=== PATIENT | female | born 1980 | race Caucasian/White ===

== ENCOUNTER 2016-12-26 13:27 | Emergency (ER) | payer OTHER, SELFPAY ==
[2016-12-26 13:33] VITALS: BP 123/79; PULSE 77; RESP 18; TEMP 98.3; O2SAT 100; BMI 30.2
--- NOTE | 2016-12-26 13:52 | ED PDOC ---
HPI: Female Pain Time Seen by Provider: 12/26/16 13:40 Chief Complaint (Nursing): Female Genitourinary Chief Complaint (Provider): dysuria, bodyaches History Per: Patient Additional Complaint(s): pt c/o dysuria, lower bad pain x 2-3 days w/ associated bodyaches, nausea. no fever, cp, sob, v/d/c, hematuria. LMP 12/07. also c/o L sided facial pressure behind eye and headache. Past Medical History Reviewed: Historical Data, Nursing Documentation, Vital Signs Vital Signs: Last Vital Signs Temp 98.3 F 12/26/16 13:32 Pulse 77 12/26/16 13:32 Resp 18 12/26/16 13:32 BP 123/79 12/26/16 13:32 Pulse Ox 100 12/26/16 13:32 - Medical History PMH: Depression Denies: Chronic Kidney Disease - Family History Family History: States: No Known Family Hx - Social History Current smoker - smoking cessation education provided: No Alcohol: None Drugs: Denies - Immunization History Hx Tetanus Toxoid Vaccination: No Hx Influenza Vaccination: No Hx Pneumococcal Vaccination: No - Home Medications Home Medications: Ambulatory Orders Medication Instructions Recorded Ibuprofen [Motrin] 600 mg PO Q6 PRN #14 tab 10/22/14 Oseltamivir Phosphate [Tamiflu] 75 mg PO BID #10 cap 10/22/14 Promethazine/Codeine 5 ml PO Q6 PRN #50 ml 10/22/14 [Codeine/Promethazine 10 MG/5 Ml-6.25 MG/5 Ml] Acetaminophen/Butalbital/Caf 1 tab PO Q6 PRN #20 tab 11/04/14 [Fioricet] Docusate Sodium [Colace] 100 mg PO BID #30 sgl 11/04/14 Meclizine [Antivert] 12.5 mg PO TID PRN #15 tab 11/04/14 Polymyxin B Sulfate/Trimetho 2 drop OP Q4 #1 shey 06/12/15 [Polymycin B/Trimethoprim Sulfate 12337 U/ml-1] Famotidine [Pepcid] 20 mg PO BID #20 tab 01/29/16 Fluticasone Nasal [Flonase] 1 spr NS DAILY #1 spr 12/26/16 Ibuprofen [Motrin] 600 mg PO Q8 #20 tab 12/26/16 - Allergies Allergies/Adverse Reactions: Allergies Allergy/AdvReac Type Severity Reaction Status Date / Time No Known Allergies Allergy Verified 12/26/16 13:45 Review of Systems ROS Statement: Except As Marked, All Systems Reviewed And Found Negative ENT: Positive for: Nose Congestion Gastrointestinal: Positive for: Nausea Genitourinary Female: Positive for: Dysuria Neurological: Positive for: Headache Physical Exam - Reviewed Nursing Documentation Reviewed: Yes Vital Signs Reviewed: Yes - Physical Exam Appears: Positive for: Well, Non-toxic, No Acute Distress Head Exam: Positive for: ATRAUMATIC, NORMAL INSPECTION, NORMOCEPHALIC Skin: Positive for: Normal Color, Warm, DRY Eye Exam: Positive for: EOMI, Normal appearance, PERRL ENT: Positive for: Normal ENT Inspection, Other (L maxillary and frontal sinus tederness) Neck: Positive for: Normal, Painless ROM Cardiovascular/Chest: Positive for: Regular Rate, Rhythm Respiratory: Positive for: CNT, Normal Breath Sounds Gastrointestinal/Abdominal: Positive for: Normal Exam, Bowel Sounds, Soft, Tenderness (mild suprapubic tenderness). Negative for: Mass, Distended, Guarding, Rebound Neurologic/Psych: Positive for: Alert, [employer] certified network professional II-XII, Oriented, Gait (steady). Negative for: Motor/Sensory Deficits - ECG O2 Sat by Pulse Oximetry: 100 Medical Decision Making Medical Decision Making: urine clean. s/sx sinus congestion. will give motrin/flonase, refer to pmd. Disposition - Clinical Impression Clinical Impression: Sinus headache - Patient ED Disposition Is Patient to be Admitted: No - Disposition Referrals: [facility] [Outside] Disposition: Routine/Home Disposition Time: 14:28 Condition: GOOD Prescriptions: Fluticasone Nasal [Flonase] 1 spr NS DAILY #1 spr Ibuprofen [Motrin] 600 mg PO Q8 #20 tab Instructions: Acute Headache (ED) Forms: [facility] ED School/Work Excuse Print Language: IRISH
== END 2016-12-26 15:03 | disposition home or self-care (01) ==
LOC: H.ER 13:27
DX: R30.0 Dysuria (principal); R51 Headache

== ENCOUNTER 2017-04-10 11:57 | Emergency (ER) | payer SELFPAY ==
[2017-04-10 11:57] VITALS: BMI 30.2
[2017-04-10 12:01] VITALS: BP 125/57; PULSE 75; RESP 16; TEMP 98; O2SAT 99
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
--- NOTE | 2017-04-10 15:24 | RAD ---
PROCEDURE: Cervical Spine Radiographs. HISTORY: Pain. COMPARISON: None. FINDINGS: BONES: Alignment maintained. No fracture. Dens Intact. DISC SPACES: Normal. SOFT TISSUES: Normal. No prevertebral soft tissue swelling. OTHER FINDINGS: None. IMPRESSION: Normal cervical spine radiographs
== END 2017-04-10 14:40 | disposition home or self-care (01) ==
LOC: H.ER 11:57
DX: S43.402A Unspecified sprain of left shoulder joint, initial encounter (principal); Y04.8XXA Assault by other bodily force, initial encounter
CPT/HCPCS: 71020; 72050; 73030; 81025; 96372; 99283; J1885

== ENCOUNTER 2017-12-31 18:22 | Emergency (ER) | payer SELFPAY ==
[2017-12-31 18:22] VITALS: BMI 30.2
[2017-12-31 18:40] VITALS: TEMP 98
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
[2017-12-31 20:02] LABS: HEMOGLOBIN 13.2 g/dL (12.0-16.0); MEAN CELL VOLUME 91.1 fl (81.0-99.0); MEAN CORPUSCULAR HEMOGLOBIN 29.9 pg (27.0-31.0); MEAN CORPUSCULAR HGB CONC 32.8 g/dL (33.0-37.0); RBC 4.41 Mil/uL (3.80-5.20); RED CELL DISTRIBUTION WIDTH 14.3 % (11.5-14.5); WHITE BLOOD COUNT 8.9 K/uL (4.8-10.8)
[2017-12-31 20:15] LABS: SQUAMOUS EPITHIAL 1 /hpf (0-5); URINE BACTERIA OCC (<OCC); URINE BILIRUBIN NEGATIVE (NEGATIVE); URINE BLOOD LARGE (NEGATIVE); URINE CLARITY SLIGHTY-CLOUDY (Clear); URINE COLOR STRAW (YELLOW); URINE GLUCOSE (UA) NEG (Normal); URINE LEUKOCYTE ESTERASE NEG Leu/uL (Negative); URINE PROTEIN NEGATIVE (NEGATIVE); URINE UROBILINOGEN 0.2-1.0 mg/dL (0.2-1.0)
[2017-12-31 20:16] LABS: BLOOD UREA NITROGEN 14 mg/dl (7-17); CALCIUM 9.5 mg/dL (8.4-10.2); GFR AFRICAN-AMERICAN > 60; GFR NON-AFRICAN AMERICAN > 60
[2018-01-01 00:34] VITALS: BP 114/80; PULSE 79; RESP 20
[2018-01-01 04:52] VITALS: O2SAT 99
--- NOTE | 2018-01-01 08:35 | US ---
PROCEDURE: OB Pelvic Ultrasound HISTORY: at 5 weeks 6/7 LMP: 11/21/2017 COMPARISON: No relevant prior imaging. FINDINGS: UTERUS: Two probable intrauterine gestational sacs. Gestational sac A measures 1.4 cm compatible with estimated gestational age of 5 weeks, 5 days. Gestational sac B measures 1.0 cm, out of range. Yolk sac and pole not yet identified. Uterus measures 8.3 x 4.9 x 5.8 cm. Normal in size and appearance. CERVIX: Measures 3.6 cm. Long and closed. No cervical abnormality seen. RIGHT OVARY: Measures 3.2 x 1.6 x 3.0 cm. No mass lesion. Normal flow. LEFT OVARY: Measures 4.1 x 2.4 x 4.6 no cm. Corpus luteum measuring 2.9 x 1.9 x 2.9 cm. Normal flow. FREE FLUID: None. OTHER FINDINGS: None. IMPRESSION: Two cystic structures within the endometrium that have the appearance of gestational sacs which would be compatible with twin intrauterine gestation. Gestational sac A corresponds to an estimated gestational age of 5 weeks, 5 days. Gestational sac B measures out of range. No yolk sac or pole is identified. Findings may represent early normal/ abnormal . Close clinical follow-up with serial pelvic sonography and serum beta HCG levels is recommended.
== END 2018-01-01 00:36 | disposition home or self-care (01) ==
LOC: H.ER 18:22
DX: O20.0 Threatened abortion (principal); Z86.59 Personal history of other mental and behavioral disorders; Z3A.01 Less than 8 weeks gestation of pregnancy

== ENCOUNTER 2018-08-16 12:21 | Emergency (ER) | payer SELFPAY ==
[2018-08-16 12:21] VITALS: BMI 30.2
--- NOTE | 2018-08-16 13:27 | ED PDOC ---
HPI: Influenza Time Seen by Provider: 08/16/18 12:58 Chief Complaint: Flu-like Symptoms Chief Complaint (Provider): Flu-like Symptoms History Per: Patient Exam Limitations: no limitations Onset/Duration Of Symptoms: Days (x3) Additional complaint(s):: 38 year old female, , 38 weeks , presents to the ED for evaluation of body aches, tactile fever, nasal congestion, cough, and sore throat for the past two days. She follows at the [facility], last visit was last week, and reports no complications so far, she is scheduled for a at 39 weeks. Patient states that she also developed mild abdominal pain, mostly with coughing, but also lower abdominal pain while at rest. Additionally, she says she has had decreased movements as of last night, but felt the baby move normally again this afternoon again. Denies vaginal bleeding or leaking of vaginal fluids. PMD: Samir Mcfarland OBGYN: [facility] Past Medical History Reviewed: Historical Data, Nursing Documentation, Vital Signs Vital Signs: Last Vital Signs Temp 99.4 F 08/16/18 12:44 Pulse 111 H 08/16/18 12:44 Resp 16 08/16/18 12:44 BP 124/70 08/16/18 12:44 Pulse Ox 100 08/16/18 12:44 - Medical History PMH: Depression Denies: Chronic Kidney Disease - Surgical History Surgical History: No Surg Hx - Family History Family History: States: Unknown Family Hx - Social History Current smoker - smoking cessation education provided: No Alcohol: None Drugs: Denies - Immunization History Hx Tetanus Toxoid Vaccination: No Hx Influenza Vaccination: No Hx Pneumococcal Vaccination: No - Home Medications Home Medications: Ambulatory Orders Medication Instructions Recorded Ibuprofen [Motrin] 600 mg PO Q6 PRN #14 tab 10/22/14 Oseltamivir Phosphate [Tamiflu] 75 mg PO BID #10 cap 10/22/14 Promethazine/Codeine 5 ml PO Q6 PRN #50 ml 10/22/14 [Codeine/Promethazine 10 MG/5 Ml-6.25 MG/5 Ml] Acetaminophen/Butalbital/Caf 1 tab PO Q6 PRN #20 tab 11/04/14 [Fioricet] Docusate Sodium [Colace] 100 mg PO BID #30 sgl 11/04/14 Meclizine [Antivert] 12.5 mg PO TID PRN #15 tab 11/04/14 Polymyxin B Sulfate/Trimetho 2 drop OP Q4 #1 shey 06/12/15 [Polymycin B/Trimethoprim Sulfate 96956 U/ml-1] Famotidine [Pepcid] 20 mg PO BID #20 tab 01/29/16 Fluticasone Nasal [Flonase] 1 spr NS DAILY #1 spr 12/26/16 Ibuprofen [Motrin] 600 mg PO Q8 #20 tab 12/26/16 Acetaminophen [Tylenol 325mg tab] 650 mg PO Q6H PRN #50 tab 04/10/17 Lidocaine 5% [Lidoderm] 1 patch TD DAILY #10 patch 04/10/17 Naproxen [Naprosyn] 500 mg PO Q12 PRN #30 tab 04/10/17 Oseltamivir Phosphate [Tamiflu] 75 mg PO BID #10 capsule 08/16/18 - Allergies Allergies/Adverse Reactions: Allergies Allergy/AdvReac Type Severity Reaction Status Date / Time No Known Allergies Allergy Verified 08/16/18 12:44 Review of Systems ROS Statement: Except As Marked, All Systems Reviewed And Found Negative Constitutional: Positive for: Fever (tactile), Other (body aches) ENT: Positive for: Nose Congestion, Throat Pain Respiratory: Positive for: Cough Gastrointestinal: Positive for: Abdominal Pain (mild) Genitourinary Female: Negative for: Vaginal Discharge, Vaginal Bleeding Physical Exam - Reviewed Nursing Documentation Reviewed: Yes Vital Signs Reviewed: Yes - Physical Exam Appears: Positive for: No Acute Distress Head Exam: Positive for: ATRAUMATIC, NORMOCEPHALIC Skin: Positive for: Normal Color. Negative for: Rash Eye Exam: Positive for: Normal appearance ENT: Positive for: Nasal Congestion, Pharyngeal Erythema Neck: Positive for: Normal, Painless ROM, Supple Cardiovascular/Chest: Positive for: Regular Rate, Rhythm Respiratory: Positive for: Normal Breath Sounds. Negative for: Respiratory Distress Gastrointestinal/Abdominal: Positive for: Normal Exam, Other (gravid abdomen). Negative for: Tenderness (no localized tenderness) Back: Positive for: Normal Inspection Extremity: Positive for: Normal ROM (all extremities) Neurologic/Psych: Positive for: Alert, Oriented (x3) Medical Decision Making Medical Decision Making: Time: 1348 Initial Impression: URI, Initial Plan: --Tylenol 650mg PO --Influenza A B swab --Rapid strep swab Heart Tones: 130s. Pt. is Flu +, tamiflu po given. Pt. nontoxic, tolerating po, febrile. Case d/w Nurse at [facility], L&D and ob Resident, pt. will go from ED to OB ED for further evaluation. Pt. agreeable to plan. Scribe Attestation: Documented by Cynthia Clemente, acting as a scribe for Amelie Silva PA-C. Provider Scribe Attestation: All medical record entries made by the Scribe were at my direction and personally dictated by me. I have reviewed the chart and agree that the record accurately reflects my personal performance of the history, physical exam, medical decision making, and the department course for this patient. I have also personally directed, reviewed, and agree with the discharge instructions and disposition. - ECG O2 Sat by Pulse Oximetry: 100 (RA) Pulse Ox Interpretation: Normal Disposition - Clinical Impression Clinical Impression: Influenza - Disposition Disposition: Routine/Home Disposition Time: 15:30 Condition: STABLE Prescriptions: Oseltamivir Phosphate [Tamiflu] 75 mg PO BID #10 capsule Instructions: Flu, Adult (DC) Forms: [facility] (Wolof) Print Language: CITIZ[place]
[2018-08-16 15:25] VITALS: RESP 18
[2018-08-16 15:28] VITALS: O2SAT 100
--- NOTE | 2018-08-16 17:49 | OBDCSUM ---
Datetime: 08/16/2018 16:44 Discharged to, Provider: Home Follow up at, Provider: [facility] Disch Instr Activity: Normal activity Disch Instr Diet: Regular Discharge Time: 08/16/2018 16:44 Follow up in weeks, Provider: 08/18/2018 Disch Referrals: None Discharge Diagnosis Prov Other: false labor
--- NOTE | 2018-08-16 17:49 | OBHP ---
Datetime: 08/16/2018 16:19 IP Adm Impression: Term, intrauterine ; No Active Labor IP Admit Plan: Observation/Evaluation; Discharge home Admit Comment, IP Provider: 38 y/o female @ 38.2 wk GA who was evaluated at [facility] ER for flu symptoms. She was positive for flu virus and given rx for tamiflu. Patient also complained of pelvic pain and was sent to [facility] for further evaluation. Patient denies vaginal bleeding, vaginal fluid loss , and endorses movement. OB: [facility] Obhx: x 2016 Pmhx: denies HomeRx: vitamins, Tamiflu Famhx: unknown. She was adopted. Socialhx: Denies toxic habuts SurgHx: 2016, carpel tunnel repair Allergies: NKDA ROS: negative except per HPI Physical Exam: Gen: appears comfortable Heart: S1 S2 present, RRR Lungs: normal resp effort. Clear to auscultation bilaterally Abd: Gravid, normal BS, soft, non-tender SVE: (By Dr. Soto): 1cm/50%/-2 Extremities: non-tender/no erythema/no swelling Assessment and Plan 38 y/o female @ 38wk GA IUP SVE: 1/50/-2, [place] shows occasional ctx, NST reactive w/ moderate variability Patient is not in active labor Patient counsled on -safe flu management Patient stable for discharge, advised of ER precautions, (Heavy vaginal bleeding, fluid loss, abdo soni cramping, etc) and advised to follow up w/ OB. Patient reports that she has appointment w/ OB . Case discussed w/ OB attending, davida Cabanjovita ID: [id number] Addendum by Dr. Soto: I have evaluated the patient independently and I agree with the above Pelvic Type - PN: Adequate Extremities - PN: Normal Abdomen - PN: Normal Back - PN: Not Done Breast - PN: Not Done Lungs - PN: Normal Heart - PN: Normal Thyroid - PN: Not Done Neurologic - PN: Not Done HEENT - PN: Not Done General - PN: Normal FHR - Baseline A Provider: 150 Contraction Comments Provider: occasional Comments, ACOG Physical Exam: SVE: /-2 Gestation - Est Wks by US: 38.2 IP Hx Assessment: The History has been Reviewed and is Current EGA AdmitDate IP: 38.2 Vital Signs Provider: Reviewed; Within Normal Limits IP Chief Complaint: Uterine contractions NICHD Variability Prov Fetus A: Moderate 6-25bpm NICHD Accel Fetus A IP Provider: 15X15 NICHD Decel Fetus A IP Provider: None Dilatation, Provider: 1 Effacement, Provider: 50 Station, Provider: -2 Genitourinary Exam: Not Done DTRs - PN: Not Done
[2018-08-16 22:17] VITALS: BP 112/75; PULSE 119; TEMP 98.1
== END 2018-08-16 16:44 | disposition home or self-care (01) ==
LOC: H.ER 12:21 → H.EROB2 12:21 → H.EROB 15:56 → H.EROB2 16:44
DX: O26.93 Pregnancy related conditions, unspecified, third trimester (principal); J11.1 Influenza due to unidentified influenza virus with other respiratory manifestations; O47.1 False labor at or after 37 completed weeks of gestation; Z3A.39 39 weeks gestation of pregnancy

== ENCOUNTER 2018-08-22 10:59 | Inpatient (IN) | payer MEDICAID, SELFPAY ==
[2018-08-22 11:01] VITALS: BMI 35.8
[2018-08-22] MEDS ORDERED: ceFAZolin 2 GM in Sodium Chloride 0.9% 100 ML IVPB ONE (11:01)
[2018-08-22] MEDS ORDERED: Lactated Ringer's 1,000 ML IV ONE ×2 (11:01)
[2018-08-22] MEDS ORDERED: Oxytocin 30 UNIT 30 UNITS/500 ML BAG IV ONE (11:06)
[2018-08-22] MEDS ORDERED: OXYTOCIN/0.9 % NS 20 UNIT/1,000 ML BAG IV SCH ×2 (11:15→17:54)
[2018-08-22] MEDS ORDERED: Lactated Ringer's 1,000 ML IV SCH ×2 (11:15→17:54)
[2018-08-22] MEDS ORDERED: ePHEDrine 50 mg/ml Inj ONE (12:12)
[2018-08-22] MEDS ORDERED: Morphine 1 mg/ml preservative-free Inj(Duramorph) ONE (12:12)
[2018-08-22] MEDS ORDERED: Phenylephrine 10 mg/ml Inj ONE (12:13)
[2018-08-22] MEDS ORDERED: EPINEPHrine 1 mg/ml (1:1000) Inj ONE (12:13)
[2018-08-22 12:20] LABS: BASO % 0.1 % (0.0-2.0); EOS % 0.4 % (0.0-4.0); HEMOGLOBIN 11.3 g/dL (12.0-16.0); LYMPH # 1.3 K/uL (1.0-4.3); LYMPH % 26.7 % (20.0-40.0); MEAN CELL VOLUME 83.1 fl (81.0-99.0); MEAN CORPUSCULAR HGB CONC 32.5 g/dL (33.0-37.0); MEAN PLATELET VOLUME 8.6 fl (7.2-11.7); MONO # 0.3 K/uL (0.0-0.8); MONO % 5.3 % (0.0-10.0); NEUT # 3.3 K/uL (1.8-7.0); NEUT % 67.5 % (50.0-75.0); NRBC % 0.1 % (0.0-0.0); RBC 4.21 Mil/uL (3.80-5.20); RED CELL DISTRIBUTION WIDTH 16.8 % (11.5-14.5); WHITE BLOOD COUNT 4.8 K/uL (4.8-10.8)
--- NOTE | 2018-08-22 14:12 | OBADHP ---
Datetime: 08/22/2018 11:27 Admit Comment, IP Provider: 38 y/o female with IUP @ 39+1 wk GA based on presents today for scheduled repeat C/S with BTL. She denies vaginal bleeding, vaginal fluid loss, and endorses m ovement. Denies dysuria, fever, chills, N/V/D/C. ROS: negative except for stated above : [facility]- Dr. Bermudez; Previous x 1 in 2017 because of arrest of descent Labs: HbsAg: Unknown (02/02/18 negative); ABO: O+; Antibody: negative; GBS: negative; Gc/Cl: negati ve; Hepatitis B ag: negative; RPR: non-reactive; Rubella: immune; PMHx: Denies PSHx: 2011; Right hand surgery for carpal tunnel 2 years ago; removal of cyst in right b reast (patient does not remember the year) Allergies: NKDA Medications: PNVs; finished a course of tamiflu yesterday- no longer symptomatic SocialHx: Denies ETOH/smoking/drugs Family History: Unknown as she was adopted. P.E: patient is comfortable at this time, laying in her hospital bed in no acute distress. Vitally stable. Heart: S1 and S2 no murmurs, gallops or rubs. Lungs: Clear bilaterally. No wheezes, rhonchi or rales. Abdomen: Soft, gravid, non-tender. BS present in all quadrants. Extremities: +2 dorsalis pedis pulses bilaterally. No lower extremity edema. Non-tender calves. A/P: 38 y/o, , with IUP at 39+1 weeks presents today for scheduled repeat C/S with BTL. - Continue EFM and toco monitoring: NST reactive- category 1 tracing with regular contractions - Admit patient to labor and delivery - Initiate C/S protocol - LR @ maintainence - Ancef 2gm for surgical prophylaxis - Anesthesia consult - f/u CBC, T_S, HIV Case discussed with Dr. Tc Yen, PGY1 Patient seen and evaluated by me. Agree with above H+P. --Dr. Piedra Pelvic Type - PN: Adequate Extremities - PN: Normal Abdomen - PN: Normal Back - PN: Normal Breast - PN: Not Done Lungs - PN: Normal Heart - PN: Normal Thyroid - PN: Normal Neurologic - PN: Normal HEENT - PN: Normal General - PN: Normal FHR - Baseline A Provider: 150 Vital Signs Provider: Reviewed; Within Normal Limits IP Chief Complaint: Uterine contractions NICHD Variability Prov Fetus A: Moderate 6-25bpm NICHD Accel Fetus A IP Provider: 15X15 FHR Category Provider Fetus A: Category I NICHD Decel Fetus A IP Provider: None Genitourinary Exam: Normal DTRs - PN: Normal EGA AdmitDate IP: 39.1 IP Adm Impression: Term, intrauterine IP Admit Plan: Admit to unit; Initiate Section protocol Datetime: 08/16/2018 16:19 Contraction Comments Provider: occasional Comments, ACOG Physical Exam: SVE: /-2 Gestation - Est Wks by US: 38.2 IP Hx Assessment: The History has been Reviewed and is Current Dilatation, Provider: 1 Effacement, Provider: 50 Station, Provider: -2
--- NOTE | 2018-08-22 14:15 | OBDS ---
DELIVERY PERSONNEL Delivery Doctor: Hung Piedra MD Scrub Nurse: Faiza Fernando OBT Supervisor Metal Placing: Andriy/Althea Resident: Warner (O Fellow)/[facility] MATERNAL INFORMATION Delivery Anesthesia: Spinal Medications in Delivery: Pitocin Maternal Complications: None Provider Comments: See Operative Report LABOR SUMMARY EDC: 08/28/2018 00:00 No. Babies in Womb: 1 Attempted: No Labor Anesthesia: None LABOR INFORMATION Reason for Induction: Not Applicable Oxytocin: N/A Group B Beta Strep: Negative Antibiotics # of Doses: Ancef 2 grams IVPB Antibiotics Time of Last Dose: 1235 Steroids Given: None Reason Steroids Not Administered: Not Applicable MEMBRANES Membranes Rupture Method: Artificial Rupture of Membranes: 08/22/2018 13:09 Length of Rupture (hrs): 0.02 Amniotic Fluid Color: Bloody Amniotic Fluid Amount: Moderate Amniotic Fluid Odor: Normal STAGES OF LABOR Stage 3 hrs: 0 Stage 3 min: 1 CSECTION DELIVERY Primary Indication: Repeat Elective Secondary Indication: AMA with BRL CSection Incidence: Repeat Labor: No Labor Elective: Elective CSection Incision: Lower Uterine Transverse Sterilization Procedure: Anupama BABY A INFORMATION Delivery Date/Time: 08/22/2018 13:10 Method of Delivery: Born in Route : No : N/A Forceps: Outlet Vacuum Extraction: N/A Shoulder Dystocia : No SHOULDER DYSTOCIA BABY A Infant Delivery Date/Time: 08/22/2018 13:10 PRESENTATION/POSITION BABY A Presentation: Cephalic Cephalic Presentation: Vertex Breech Presentation: N/A PLACENTA INFORMATION BABY A Placenta Delivery Time : 08/22/2018 13:11 Placenta Method of Delivery: Manual Removal Placenta Status: Delivered SCORES BABY A Heart Rate 1 min: >100 bpm Resp Effort 1 min: Good Cry Reflex Irritability 1 min: Cough or Sneeze or Pulls Away Muscle Tone 1 min: Active Motion Color 1 min: Blue/Pale Resuscitation Effort 1 min: Tactile Stimulation SCORE 1 MIN: 8 Heart Rate 5 min: Slow, Below 100 bpm Resp Effort 5 min: Good Cry Reflex Irritability 5 min: Cough or Sneeze or Pulls Away Muscle Tone 5 min: Active Motion Color 5 min: Body [place], Extremities Blue Resuscitation Effort 5 min: N/A SCORE 5 MIN: 8 INFANT INFORMATION BABY A Gestational Age at Delivery: 39.1 Gestational Status: Term Infant Outcome : Liveborn Condition : Fair Sex: Female IDENTIFICATION/MEDS BABY A ID Band Number: [id number] ID Band Location: Left Leg; Left Arm Vitamin K Given : Not Given Erythromycin Given: Not Given WEIGHT/LENGTH BABY A Birthweight (gms): 3620 Weight (lb): 8 Weight (oz): 0 Length Inches: 20.25 Length cms: 51.4 CORD INFORMATION BABY A No. Cord Vessels: 3 Nuchal Cord : N/A Nuchal Cord Other: n/a True Knot: n/a Cord pH Baby Arterial: n/a Cord pH Baby Venous: n/a Cord Blood Taken: Yes Banking/Donate Info: n/a Suction: Mouth; Nose; Pharynx ASSESSMENT BABY A Infant Complications: None Physical Findings at Delivery: Within Normal Limits Infant Respirations: Grunting; Nasal Flaring; Sternal Retractions Molasses Coloring Operator/ALS Called : No Infant Care By: Dr Arthur/Casey/Andriy Transferred To: [facility]
--- NOTE | 2018-08-23 02:16 | OP ---
PROCEDURE DATE: 08/22/2018 PREOPERATIVE DIAGNOSES: Term , advanced maternal age, previous section, desires repeat and multiparity. PREOPERATIVE DIAGNOSES: Term , advanced maternal age, previous section, desires repeat and multiparity, delivered. PROCEDURE: Repeat low transverse section with lysis of adhesions and bilateral tubal ligation. SURGEON: Kimberley Piedra MD FAMILY CONSUMER SCIENTIST: Dr. Jannie Shine. ESTIMATED BLOOD LOSS: 800 mL. URINE OUTPUT: 175 mL, clear at the end of procedure. INTRAVENOUS FLUID: 1350 mL lactated Ringer's. COMPLICATIONS: None. PATHOLOGY: Segment of right and left fallopian tube. TYPE OF ANESTHESIA: Spinal. ANESTHESIA ADMINISTERED BY: Mariana Barroso MD FINDINGS: A live female with Apgars of 8 and 9, weight 3620 g, delivered in vertex presentation; amniotic fluid clear. DESCRIPTION OF PROCEDURE: The patient was taken to the operating room and given spinal anesthesia without difficulty. She was then prepped and draped in normal sterile fashion in the dorsal position with the leftward tilt. A Pfannenstiel skin incision was then made with a scalpel to the previous scarring and carried through the underlying fascia with the Bovie. The fascia was incised in the midline. The incision was extended laterally using the Bovie. The inferior aspect of the fascial incision was grasped with Marvin clamps, elevated, and the underlying rectus muscles were dissected off with the Bovie, then bluntly. Attention was then turned to the superior aspect of the fascial incision, which in a similar fashion, was dissected off with the Bovie, then bluntly. The rectus muscles were in the midline. The peritoneum was identified and entered bluntly. This incision was then extended laterally, superiorly, and inferiorly, paying close attention to the bladder. The bladder blade was inserted. The vesicouterine peritoneum was identified, tented up, and entered with Metzenbaum scissors and this incision was extended laterally and the bladder flap was created gently. The bladder blade was reinserted and the lower uterine segment was incised in transverse fashion with the scalpel. This incision was extended laterally using the bandage scissors and the membranes were then ruptured, and the infant was delivered in vertex presentation atraumatically. The nose and mouth were suctioned on the abdomen. The cord was doubly clamped and cut, and the infant was handed off to the waiting book editor. Cord blood was then taken. The uterus was exteriorized and cleared off all clots and debris. The uterine incision was then closed with 1 Vicryl in a running locked fashion and one further [id number] suture was then placed and good hemostasis was noted. Adhesion of the omentum was then seen to the anterior abdominal and this was taken down with the Bovie and free ties and good hemostasis was noted. At this time, attention was then turned to the fallopian tubes, the tubes were grasped with a Calvert clamp and a 2-0 chromic suture was then used to perform a modified La Follette procedure. This segment of the right and left fallopian tube was then tied, cut and removed and the Bovie was used to obtain good hemostasis at the sites of the tubal ligation bilaterally, good hemostasis was again noted. The inspection of the low uterine segment revealed good hemostasis as well. Copious irrigation was performed. The uterus was returned to the abdomen. The gutters was cleared off all clots, again inspection of the site of tubal ligation revealed good hemostasis throughout. The peritoneum was then closed with 2-0 Vicryl in a running fashion and two horizontal mattress sutures were then placed and the muscle layer with 0-Vicryl for reapproximation of this layer. The fascia was reapproximated using 0 Vicryl in a running fashion bilaterally to the midline. The Bovie was used to obtain good hemostasis from the subcutaneous fat layer and this was then closed with 4 interrupted stitches using a 3-0 plain suture. The skin was closed with kashmir and the incision was covered with sterile dressing. The patient tolerated the procedure well. Sponge, lap and needle counts were correct x4. Ancef 2 g were given preoperatively. The patient was then taken to the recovery room in stable condition. There was no injury to the bladder, bowel, or ureter. Kimberley Piedra MD
[2018-08-23 05:53] LABS: HEMOGLOBIN 9.8 g/dL (12.0-16.0); MEAN CELL VOLUME 83.2 fl (81.0-99.0); MEAN CORPUSCULAR HEMOGLOBIN 26.5 pg (27.0-31.0); MEAN CORPUSCULAR HGB CONC 31.8 g/dL (33.0-37.0); RBC 3.71 Mil/uL (3.80-5.20); RED CELL DISTRIBUTION WIDTH 16.8 % (11.5-14.5); WHITE BLOOD COUNT 5.9 K/uL (4.8-10.8)
[2018-08-23] MEDS: Multivitamin With Minerals Tab PO SCH (08:10)
[2018-08-23] MEDS ORDERED: Multivitamin With Minerals Tab PO SCH (09:00)
--- NOTE | 2018-08-23 09:40 | OBPPN ---
Datetime: 08/23/2018 06:09 PP Pain Prov: Within normal limits PP Nausea Prov: Denies PP Flatus Prov: No PP BM Prov: No PP Breasts Prov: Normal PP Heart Prov: Normal PP Lungs Prov: Normal PP Abdomen/Uterus Prov: Normal PP Lochia Prov: Normal PP Vulva/Perineum Prov: Not Done PP CVA Tenderness Prov: Not Done PP Extremities Prov: Normal PP C/S Incision Prov: Normal PP Progress Prov: Not Applicable PP Impression Prov: Normal progression PP Plan Prov: Continue present management PP Progress Note Prov: POD 1 S: 38 yo f S/P C-sec on 08/22/18, POD1. No overnight events. Pain tolerated with Ibuprofen. Am bulating without dizziness/ lightheadedness/palpatations. Formula feeding only. Lochia < menses. - fl atus/- BM. Denies fever/chills, diarrhea, nausea/vomiting, chest pain, dyspnea, and dizziness. Tolera ting liquid diet. O: VS: stable GEN: NAD Cardio: S1S2, no murmurs Lungs: clear breath sounds b/l, no wheezing Abdomen: BS+, appropriate tenderness to palpation. Incision not visualized, dressing intact dry an d clean. Uterus is firm and at the level of the umbilicus. Appropriate tenderness EXT: No edema, calves non-tender NEURO/PSYCH: AAOx3, no grossly focal deficits, preserved affect and mood. H/H: aCBC: 11.3/34.9 ; pCBC: 9.8/30.9 Assessment/Plan: 38 yo f S/P C-sec on 08/22/18, POD1. Pt remains afebrile, tolerating pain wit h medication. -Anticipating discharge 08/25. -SCDs for DVT prophylaxis, encouraged ambulating -Percocet 5/325mg q4 and Motrin 600mg po q6 for pain as per pain scale -Senakot 17.2mg po QHS -Mylicon 80mg Q6H -Encourage ambulation -Case seen and discussed with Dr Tc Ocasio PGY1 Patient seen and examined by me this am. Agree with above note. --Dr. Danika Remy IP PP Procedures: None Vital Signs Provider PP: Reviewed; Within Normal Limits
[2018-08-23] MEDS ORDERED: Oxycodone/Acetaminophen 5/325 mg Tab PO PRN (19:53)
[2018-08-24] MEDS ORDERED: Oxycodone/Acetaminophen 5/325 mg Tab PO PRN (07:34)
[2018-08-24] MEDS: Multivitamin With Minerals Tab PO SCH (08:13)
[2018-08-24] MEDS: Oxycodone/Acetaminophen 5/325 mg Tab PO PRN ×2 (08:14→14:06)
--- NOTE | 2018-08-24 10:04 | OBPPN ---
Datetime: 08/24/2018 06:00 PP Pain Prov: Within normal limits PP Nausea Prov: Denies PP Flatus Prov: Yes PP BM Prov: No PP Breasts Prov: Not Done PP Heart Prov: Normal PP Lungs Prov: Normal PP Abdomen/Uterus Prov: Normal PP Lochia Prov: Normal PP Vulva/Perineum Prov: Not Done PP CVA Tenderness Prov: Not Done PP Extremities Prov: Normal PP C/S Incision Prov: Normal PP Progress Prov: Not Applicable PP Impression Prov: Normal progression PP Plan Prov: Continue present management PP Progress Note Prov: POD 2 S: 38 yo s/p C-sec on 08/22/18, POD2. No overnight events. Pain tolerated with Ibuprofen. Ambu lating without dizziness/ lightheadedness/palpatations. and bottle feeding. Lochia < me nses. + flatus/- BM. Denies fever/chills, diarrhea, nausea/vomiting, chest pain, dyspnea, and dizzine ss. Tolerating liquid/regular diet. O: VS: stable GEN: NAD Cardio: S1S2, no murmurs Lungs: clear breath sounds b/l, no wheezing Abdomen: BS+, appropriate tenderness to palpation. Incision not visualized, dressing intact dry an d clean. Uterus is firm and at the level of the umbilicus. Appropriate tenderness EXT: No edema, calves non-tender NEURO/PSYCH: AAOx3, no grossly focal deficits, preserved affect and mood. H/H: aCBC: 11.3/34.9 pCBC: 9.8/30.9 Assessment/Plan: 38 yo S/P C-sec on 08/22/18, POD1. Pt remains afebrile, tolerating pain with medication. -Anticipating discharge 08/25. -SCDs for DVT prophylaxis, encouraged ambulating -Percocet 5/325mg q4 and Motrin 600mg po q6 for pain as per pain scale -Senakot 17.2mg po QHS -Mylicon 80mg Q6H -Encourage ambulation Case discussed with Dr Roman Ocasio PGY1 Patient seen and examined by me this am. Agree with above note. Continue Motrin for pain. --Dr. Piedra IP PP Procedures: None Vital Signs Provider PP: Within Normal Limits
[2018-08-25] MEDS: Multivitamin With Minerals Tab PO SCH (08:44)
--- NOTE | 2018-08-25 10:00 | OBDCSUM ---
Datetime: 08/25/2018 07:57 Discharged to, Provider: Home Follow up at, Provider: [facility] Disch Instr Activity: Normal activity; May Shower Disch Instr Diet: Regular Discharge Instructions, Provider: Routine instructions given Discharge Diagnosis, Provider: Term Delivered Follow up in weeks, Provider: 1 week wound check, 6 weeks PP Disch Referrals: None Contraception discussed, Prov: Yes Disch Activity Restrictions: Minimize stair-climbing; No sexual activity; Nothing in vagina - Interc ourse, tampons, douche Discharge Comment, Provider: 38 yo s/p C-sec of baby boy on 08/22/18 at 39.1 weeks EGA. : Female, Wt. 3620 gm, 8/9 Post- D/C Summary: No OB complications. No complications during post- period. Lochia i s less than menses. Pt able to pass flatus, voiding well and able to ambulate but no BM yet. Tolerate regular diet w/o N/V. Fundus firm below umbilicus level. Pt is hemodynamically stable. H/H: aCBC: 11.3/34.9; pCBC: 9.8/30.9 Discharge Instructions given to patient: PNV 1 tab po q/day Ibuprofen 600 mg 1 tab po prn q4-6 if moderate pain #30. NO REFILL. Percocet 5/325 mg 1tab po prn q6h if severe pain #20. NO REFILL Ambulatory with caution, nothing per vagina/sex for 4 weeks, no heavy lifting, avoid stairs, if ex cessive bleeding or fever without relief from Tylenol go to ED Follow-up [facility] 1 week wound check and 6 week visit. Case discussed with Dr Maximiliano Ocasio PGY1 Contraception after Delivery: Tubal Ligation
--- NOTE | 2018-08-25 10:00 | OBPPN ---
Datetime: 08/25/2018 07:56 PP Pain Prov: Within normal limits PP Nausea Prov: Denies PP Flatus Prov: Yes PP BM Prov: No PP Breasts Prov: Normal PP Heart Prov: Normal PP Lungs Prov: Normal PP Abdomen/Uterus Prov: Normal PP Lochia Prov: Normal PP Vulva/Perineum Prov: Normal PP CVA Tenderness Prov: Normal PP Extremities Prov: Normal PP Impression Prov: Normal progression PP Plan Prov: Continue present management; Discharge PP Progress Note Prov: POD 3 S: 38 yo s/p C-sec on 08/22/18, POD3. No overnight events. Pain tolerated with Ibuprofen. Ambu lating without dizziness/ lightheadedness/palpatations. and bottle feeding. Lochia < me nses. + flatus/- BM. Denies fever/chills, diarrhea, nausea/vomiting, chest pain, dyspnea, and dizzine ss. Tolerating liquid/regular diet. O: VS: stable GEN: NAD Cardio: S1S2, no murmurs Lungs: clear breath sounds b/l, no wheezing Abdomen: BS+, appropriate tenderness to palpation. Incision visualized, dry and clean with no eryt roxana or drainage. Uterus is firm and at the level of the umbilicus. Appropriate tenderness EXT: No edema, calves non-tender NEURO/PSYCH: AAOx3, no grossly focal deficits, preserved affect and mood. H/H: aCBC: 11.3/34.9 pCBC: 9.8/30.9 Assessment/Plan: 38 yo S/P C-sec on 08/22/18, POD3. Pt remains afebrile, tolerating pain with medication. -Anticipating discharge 08/25 -SCDs for DVT prophylaxis, encouraged ambulating -Percocet 5/325mg q4 and Motrin 600mg po q6 for pain as per pain scale -Senakot 17.2mg po QHS -Mylicon 80mg Q6H -Encourage ambulation Case discussed with Dr Maximiliano Ocasio PGY1 Patient seen and examined by me this am. Agree with above resident note. Patient to be discharge d home today with rx for pain meds and Dulcolax. Patient to follow up with me in 1 wk for incision ch savana. --Dr. Piedra IP PP Procedures: None Vital Signs Provider PP: Reviewed; Within Normal Limits
[2018-08-25 18:15] VITALS: BP 122/83; PULSE 74; RESP 20; TEMP 98.1; O2SAT 98
== END 2018-08-25 13:50 | disposition home or self-care (01) | DRG 540 ==
LOC: H.L&D 11:02 → H.OB/GYN 17:30
PROVIDERS: ADMIT Obstetrics & Gynecology; ATTEND Obstetrics & Gynecology
PROC: 10D00Z1 Extraction of Products of Conception, Low, Open Approach (ICD-10-PCS; principal; 2018-08-22)
PROC: 0UB70ZZ Excision of Bilateral Fallopian Tubes, Open Approach (ICD-10-PCS; 2018-08-22)
PROC: 4A1HXCZ Monitoring of Products of Conception, Cardiac Rate, External Approach (ICD-10-PCS; 2018-08-22)
DX: O34.211 Maternal care for low transverse scar from previous cesarean delivery (principal); N85.8 Other specified noninflammatory disorders of uterus; Z37.0 Single live birth; Z3A.39 39 weeks gestation of pregnancy; Z30.2 Encounter for sterilization